=== PATIENT | female | born 1960 | race Caucasian/White ===

== ENCOUNTER 2017-01-12 08:00 | Outpatient (CLI) | payer MEDICAID | END 2017-01-12 08:01 | disposition home or self-care (01) | DX: Z12.11 Encounter for screening for malignant neoplasm of colon (principal) ==

== ENCOUNTER 2017-01-13 08:57 | Outpatient (CLI) | payer MEDICAID | END 2017-01-13 08:58 | disposition home or self-care (01) | DX: Z12.31 Encounter for screening mammogram for malignant neoplasm of breast (principal) ==

== ENCOUNTER 2017-01-20 14:47 | Outpatient (CLI) | payer MEDICAID | END 2017-01-20 14:48 | disposition home or self-care (01) | DX: Z13.9 Encounter for screening, unspecified (principal) ==

== ENCOUNTER 2017-10-28 13:36 | Emergency (ER) | payer MEDICAID ==
[2017-10-28 14:11] LABS: BILIRUBIN,URINE NEGATIVE (NEGATIVE); GLUCOSE, URINE (UA) NEGATIVE (NEGATIVE); KETONES,URINE (UA) NEGATIVE (NEGATIVE); LEUKOCYTE ESTERASE, URINE NEGATIVE (NEGATIVE); NITRITE,URINE NEGATIVE (NEGATIVE); OCCULT BLOOD,URINE NEGATIVE (NEGATIVE); PROTEIN,URINE NEGATIVE (NEGATIVE); UROBILINOGEN,URINE 0.2 (NORMAL) E.U./dL (NORMAL)
[2017-10-28 14:14] LABS: CLARITY,URINE CLEAR (CLEAR)
--- NOTE | 2017-10-28 15:00 | ED Physician Documentation ---
PD HPI FEMALE - Stated complaint Stated Complaint: FEMALE - Chief complaint Chief Complaint: UTI - History obtained from History obtained from: Patient - History of Present Illness Timing - onset: How many days ago (3-4) Timing - duration: Days Timing - details: Gradual onset, Still present, Waxing and waning Associated symptoms: Dysuria, Urinary frequency. No: Fever, Vaginal bleeding, Vaginal discharge, Hematuria Contributing factors: No: Exposed to STD Similar symptoms before: Diagnosis (UTIs) Recently seen: Not recently seen Review of Systems Constitutional: denies: Fever Throat: denies: Sore throat GI: denies: Abdominal Pain, Vomiting, Diarrhea : reports: Dysuria, Frequency. 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 : None HEENT: None Psych: Depression, Anxiety Musculoskeletal: None Derm: None - Past Surgical History Past Surgical History: Yes /CLINICAL LABORATORY ASSISTANT: Tubal ligation - Present Medications Home Medications: Ambulatory Orders Medication Instructions Recorded Confirmed Alprazolam [Xanax] 0.25 mg PO HS 05/27/13 10/28/17 Bupropion HCl [Wellbutrin] 100 mg PO DAILY 05/27/13 10/28/17 Temazepam 7.5 mg PO HS 05/27/13 10/28/17 Metronidazole [Flagyl] 500 mg PO BID #14 tablet 10/28/17 Naproxen 375 mg PO BID #14 tablet 10/28/17 Phenazopyridine HCl 200 mg PO TID PRN #15 tablet 10/28/17 - Allergies Allergies/Adverse Reactions: Allergies Allergy/AdvReac Type Severity Reaction Status Date / Time No Known Drug Allergies Allergy Verified 10/28/17 13:56 - Social History Does the pt smoke?: No Smoking Status: Never smoker Does the pt drink ETOH?: No Does the pt have substance abuse?: No - Immunizations Immunizations are current?: Yes - POLST Patient has POLST: No PD ED PE NORMAL - Vitals Vital signs reviewed: Yes - General General: Alert and oriented X 3, Well developed/nourished - HEENT HEENT: Ears normal, Pharynx benign - Neck Neck: Supple, no meningeal sign, No adenopathy - Cardiac Cardiac: RRR, No murmur - Respiratory Respiratory: Clear bilaterally - Abdomen Abdomen: Soft, Non tender - 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 ) - Derm Derm: Normal color, Warm and dry Results - Vitals Vitals: Oxygen O2 Source Room air - Labs Labs: Microbiology 10/28/17 15:55 Wet Prep - Final Vaginal Laboratory Tests 10/28/17 10/28/17 14:02 15:55 Urine Color LIGHT YELLOW Urine Clarity CLEAR Urine pH 6.0 Ur Specific [place] <=1.005 Urine Protein NEGATIVE Urine Glucose (UA) NEGATIVE Urine Ketones NEGATIVE Urine Occult Blood NEGATIVE Urine Nitrite NEGATIVE Urine Bilirubin NEGATIVE Urine Urobilinogen 0.2 (NORMAL) Ur Leukocyte Esterase NEGATIVE Ur Microscopic Review NOT INDICATED Urine Culture Comments NOT INDICATED C.trachomatis RNA (TMA) NOT DETECTED Chlamydia/GC Comment SEE NOTE N.gonorrhoeae RNA (TMA) NOT DETECTED PD MEDICAL DECISION MAKING - ED course Complexity details: reviewed results (UA not showing infection so discussed vaginal exam and this had appearance of BV. ), considered differential, d/w patient Departure - Departure Disposition: 01 Home, Self Care Clinical Impression: Dysuria Vaginitis Qualifiers: Chronicity: acute Qualified Code(s): N76.0 - Acute vaginitis Condition: Stable Record reviewed to determine appropriate education?: Yes Instructions: ED Dysuria Uncertain Cause, ED Vaginosis Bacterial Follow-Up: Ena Andino ARNP [Primary Care Provider] - Prescriptions: Metronidazole [Flagyl] 500 mg PO BID #14 tablet Naproxen 375 mg PO BID #14 tablet Phenazopyridine HCl 200 mg PO TID PRN #15 tablet PRN Reason: Pain Comments: Your urine test appears normal. There is some mucus and inflammation in the vaginal vault so I think the cause of your symptoms is vaginitis. We will treat that with metronidazole antibiotic. Also an anti-inflammatory naproxen twice daily for a week. He can use phenazopyridine to decrease urinary symptoms over the next couple of days while the other medications are working. Recheck if not better over the next several days. We did do a culture of the vaginal vault which will result in about 3 days and we will call you if we need to change the antibiotics based on that. Discharge Date/Time: 10/28/17 16:20
[2017-10-28] MEDS ORDERED: PHENAZOPYRIDINE 100 MG TABLET PO STA (15:45)
[2017-10-28] MEDS ORDERED: NAPROXEN 250 MG TABLET PO STA (15:56)
[2017-10-28] MEDS ORDERED: metroNIDAZOLE 250 MG TABLET PO STA (15:56)
[2017-10-28 16:12] VITALS: BP 123/87
== END 2017-10-28 16:20 | disposition home or self-care (01) ==
LOC: ED 13:36
DX: R30.0 Dysuria (principal)
CPT/HCPCS: 81003; 87210; 87491; 87591; 99283; A9270; 81001; 87086

== ENCOUNTER 2018-01-27 11:38 | Emergency (ER) | payer MEDICAID ==
--- NOTE | 2018-01-27 12:48 | XRAY Report ---
EXAM: RIGHT FOOT RADIOGRAPHY EXAM DATE: 01/27/2018 12:14 PM. CLINICAL HISTORY: Right foot pain for one month. COMPARISON: None. TECHNIQUE: 3 views. FINDINGS: Bones: Normal. No fractures or bone lesions. Joints: Normal. No subluxations. Soft Tissues: Normal. No soft tissue swelling. IMPRESSION: Normal foot radiography. [facility] Referring Provider Line: [phone] SITE ID: [id number]
--- NOTE | 2018-01-27 12:56 | ED Physician Documentation ---
PD HPI LOWER EXT INJURY - Stated complaint Stated Complaint: R FOOT PX - Chief complaint Chief Complaint: Ext Problem - History obtained from History obtained from: Patient - History of Present Illness PD HPI LOW EXT INJURY LOCATION: Right, Foot Type of injury: Other (No known injury.) Timing - duration: Months (1) Timing - details: Waxing and waning Worsened by: Other (Worse at night, and worse with weightbearing.) - Additional information Additional information: The patient is a 57-year-old female who presents complaining of pain in her right foot. The pain has been waxing and waning for the past month. She states it is worse at night and worse with weightbearing. She denies any traumatic injury. She is not a runner or involved in sports activity. She denies history of similar symptoms in the past. Review of Systems Constitutional: denies: Fever Nose: denies: Congestion Respiratory: denies: Dyspnea, Cough GI: reports: Abdominal Pain. 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 : None HEENT: None Psych: Depression, Anxiety Musculoskeletal: None Derm: None - Past Surgical History Past Surgical History: Yes /DIESEL PLANT OPERATOR: Tubal ligation - Present Medications Home Medications: Ambulatory Orders Medication Instructions Recorded Confirmed Alprazolam [Xanax] 0.25 mg PO HS 05/27/13 10/28/17 Bupropion HCl [Wellbutrin] 100 mg PO DAILY 05/27/13 10/28/17 Temazepam 7.5 mg PO HS 05/27/13 10/28/17 Naproxen [Naprosyn] 500 mg PO BID #20 tablet 01/27/18 - Allergies Allergies/Adverse Reactions: Allergies Allergy/AdvReac Type Severity Reaction Status Date / Time No Known Drug Allergies Allergy Verified 01/27/18 11:45 - Social History Does the pt smoke?: No Smoking Status: Never smoker Does the pt drink ETOH?: No Does the pt have substance abuse?: No - Immunizations Immunizations are current?: Yes - POLST Patient has POLST: No PD ED PE NORMAL - Vitals Vital signs reviewed: Yes (normal) - General General: Alert and oriented X 3, Well developed/nourished - HEENT HEENT: Atraumatic - Respiratory Respiratory: No respiratory distress - Derm Derm: No rash - Extremities Extremities: No deformity, No edema, No calf tenderness / cord, Other (There is mild tenderness to palpation along the plantar aspect of the right foot. There is no swelling or erythema, and no break in the integument. Distal neurovascular is intact. There is no bony tenderness to palpation.) - Neuro Neuro: Alert and oriented X 3, No motor deficit, No sensory deficit Results - Vitals Vitals: Oxygen O2 Source Room air - Rads (name of study) right foot Radiology: Prelim report reviewed, EMP read contemporaneously, See rad report ( Normal foot radiography.) PD MEDICAL DECISION MAKING - ED course Complexity details: reviewed results, re-evaluated patient, considered differential, d/w patient, d/w family ED course: The patient's presentation is most consistent with plantar fasciitis. There is no bony abnormality detected on x-ray. I discussed with her the diagnosis, symptomatic treatment and outpatient follow-up, as well as potentially worrisome signs or symptoms that should prompt reevaluation in the emergency department. She is being discharged with a prescription for Naprosyn. Departure - Departure Disposition: 01 Home, Self Care Clinical Impression: Plantar fasciitis Condition: Stable Instructions: ED Plantar Fasciitis Follow-Up: Ena Andino ARNP [Primary Care Provider] - Prescriptions: Naproxen [Naprosyn] 500 mg PO BID #20 tablet Comments: Keep your right foot elevated as much of the time as possible. You can use Naprosyn as prescribed if needed for pain. You could use ibuprofen , up to 600 mg 3 times daily, but do not take both ibuprofen and Naprosyn in the same day. Let pain be your guide to activity level. Follow up with your primary physician within 2 weeks. Call to schedule an appointment. Return to the emergency department if you develop increasing pain or swelling, or otherwise worsening symptoms. Discharge Date/Time: 01/27/18 13:10
[2018-01-27 13:12] VITALS: BP 111/80
== END 2018-01-27 13:10 | disposition home or self-care (01) ==
LOC: ED 11:38
DX: M72.2 Plantar fascial fibromatosis (principal)
CPT/HCPCS: 99283

== ENCOUNTER 2018-04-25 09:31 | Outpatient (CLI) | payer MEDICAID ==
--- NOTE | 2018-04-27 11:05 | Mammography Report ---
Procedure Date: 04/25/2018 Accession Number: [id number] / [id number] Procedure: OLYA - Screening Mammo Dig Bilat CPT Code: FULL RESULT: EXAM: Screening Mammo Dig Bilat DATE: 04/25/2018 9:48 AM CLINICAL HISTORY: 57-year-old with history of late childbearing for screening TECHNIQUE: Bilateral CC and MLO views were obtained. COMPARISON: 01/13/2017, 11/25/2015, 02/20/2014, 01/16/2013, 08/20/2010 FINDINGS: The breasts demonstrate scattered fibroglandular densities bilaterally. No suspicious masses, clustered microcalcifications, or regions of architectural distortion are identified. IMPRESSION: Negative examination RECOMMENDATION: Routine annual screening unless otherwise clinically indicated. BIRADS CATEGORY 1: Negative STANDARD QUALIFYING STATEMENTS: 1. This examination was reviewed with the aid of Computer-Aided Detection (CAD). 2. A negative or benign imaging report should not delay biopsy if clinically suspicious findings are present. Consider surgical consultation if warrented. More than 5% of cancers are not identified by imaging. 3. Dense breasts may obscure an underlying neoplasm.
== END 2018-04-25 09:32 | disposition home or self-care (01) ==
LOC: DI 09:31
PROVIDERS: ATTEND Family Medicine
DX: Z12.31 Encounter for screening mammogram for malignant neoplasm of breast (principal)
CPT/HCPCS: 77067

== ENCOUNTER 2018-08-02 08:27 | Outpatient (CLI) | payer MEDICAID ==
[2018-08-02 13:13] LABS: BASOPHILS % (AUTO) 0.6 %; EOSINOPHILS % (AUTO) 1.3 %; HGB - HEMOGLOBIN 13.9 g/dL (12.0-16.0); LYMPHOCYTES # (AUTO) 1.4 10^3/uL (1.5-3.5); LYMPHOCYTES % (AUTO) 37.4 %; MEAN CORPUSCULAR HEMOGLOBIN 30.7 pg (27.0-31.0); MEAN CORPUSCULAR HGB CONC 33.9 g/dL (32.0-36.0); MEAN CORPUSCULAR VOLUME 90.7 fL (81.0-99.0); MEAN PLATELET VOLUME 9.5 fL (7.9-10.8); MONOCYTES # (AUTO) 0.3 10^3/uL (0.0-1.0); MONOCYTES % (AUTO) 6.7 %; PLT - PLATELET COUNT 202 10^3/uL (130-450); RED BLOOD COUNT 4.51 10^6/uL (4.20-5.40); RED CELL DISTRIBUTION WIDTH 12.7 % (12.0-15.0); WHITE BLOOD COUNT 3.8 x10^3/uL (4.8-10.8)
[2018-08-02 13:23] LABS: ALBUMIN 4.1 g/dL (3.2-5.5); ALBUMIN/GLOBULIN RATIO 1.6 (1.0-2.2); ALKALINE PHOSPHATASE 47 IU/L (42-121); ALT ALANINE AMINOTRANSFERASE 13 IU/L (10-60); AST ASPARTATE AMINOTRANSFERASE 24 IU/L (10-42); BILIRUBIN,TOTAL 0.6 mg/dL (0.2-1.0); BUN - BLOOD UREA NITROGEN 9 mg/dL (6-20); CALCIUM 9.1 mg/dL (8.5-10.3); CARBON DIOXIDE - CO2 28 mmol/L (21-32); CHLORIDE 103 mmol/L (101-111); CHOL/HDL RATIO 2.8 (<4.4); CHOLESTEROL 191 mg/dL; CREATININE 0.5 mg/dL (0.4-1.0); GFR - MDRD 127 (>89); GLUCOSE 83 mg/dL (70-100); HDL CHOLESTEROL 69 mg/dL; SODIUM 138 mmol/L (135-145); TOTAL PROTEIN 6.7 g/dL (6.7-8.2)
[2018-08-02 16:19] LABS: LDL CHOLESTEROL,DIRECT 110 mg/dL; LDLD/HDL RATIO 1.6 (<4.4)
== END 2018-08-02 08:28 | disposition home or self-care (01) ==
LOC: LAB.WCP 08:27
PROVIDERS: ATTEND Nurse Practitioner Gerontology
DX: Z13.9 Encounter for screening, unspecified (principal)
CPT/HCPCS: 36415; 80053; 80061; 83721; 84443; 85025

== ENCOUNTER 2018-12-22 16:19 | Outpatient (CLI) | payer MEDICAID ==
--- NOTE | 2018-12-22 22:04 | MRI Report ---
Reason: BACK PAIN,LOW,INCONTINENCE URINE,RADICULOPATHY Procedure Date: 12/22/2018 Accession Number: [id number] / [id number] Procedure: MRI - Lumbar Spine W/O CPT Code: FULL RESULT: EXAM: MRI LUMBAR SPINE WITHOUT CONTRAST EXAM DATE: 12/22/2018 06:01 PM. CLINICAL HISTORY: 58-year-old female. BACK PAIN,LOW,INCONTINENCE URINE,RADICULOPATHY. COMPARISON: XR LUMBAR SPINE 2 OR 3 VIEWS 02/21/2012 9:56 AM. TECHNIQUE: Multiplanar, multisequence T1-weighted and fluid-sensitive sequences of the lumbar spine from T12 to S1 without contrast. Other: None. FINDINGS: Spinal Canal: The conus terminates at T12-L1. The conus medullaris and cauda equina are unremarkable. Alignment: No scoliosis or spondylolisthesis. Bone Marrow: Five [id number] lumbar vertebral bodies are assumed. No gross fractures or bone lesions. No bone marrow replacement. Disk Levels/Facets: T12-L1: Unremarkable. L1-L2: Unremarkable. L2-L3: Minimal diffuse disk bulge. No significant central canal or foraminal narrowing. L3-L4: Minimal diffuse disk falls. No significant central canal narrowing. Mild bilateral foraminal narrowing. L4-L5: Mild diffuse disk bulge. Mild bilateral facet arthropathy. No significant central canal narrowing. Mild bilateral foraminal narrowing. L5-S1: Mild diffuse disk bulge. Mild bilateral facet arthropathy. No significant central canal narrowing. No foraminal narrowing. Musculature: Normal. No edema or fatty atrophy. Other: T2 hyperintense hepatic lesion, please see the prior liver MR for detailed evaluation. The partially visualized abdomen, pelvis, and retroperitoneum are otherwise unremarkable. IMPRESSION: 1. Mild multilevel degenerative spondylosis, as detailed above and summarized below. No evidence of acute fracture or malalignment. No bone marrow edema. No cord signal abnormality. 2. L3-L4: No significant central canal narrowing. Mild bilateral foraminal narrowing. 3. L4-L5: No significant central canal narrowing. Mild bilateral foraminal narrowing. 4. No significant central canal or foraminal narrowing at remaining lumbar levels. Comment: The following findings are so common in adults without low back pain that while we report their presence, they must be interpreted with caution and in the context of the clinical situation. (Reference Miguelangel et al, Spine 2001) Prevalence of findings in patients without low back pain: Disk degeneration (any evidence): 92% Disk desiccation/T2 signal loss: 83% Disk height loss: 56% Disk bulge: 64% Disk protrusion: 32% Annular tear/high intensity zone: 38% [facility]
== END 2018-12-22 16:20 | disposition home or self-care (01) ==
LOC: DI 16:19
PROVIDERS: ATTEND Nurse Practitioner Gerontology
DX: M47.9 Spondylosis, unspecified (principal); M48.061 Spinal stenosis, lumbar region without neurogenic claudication
CPT/HCPCS: 72148

== ENCOUNTER 2019-01-06 10:29 | Emergency (ER) | payer MEDICAID ==
--- NOTE | 2019-01-06 12:57 | ED Physician Documentation ---
PD HPI MHE - Stated complaint Stated Complaint: MED REFILL - Chief complaint Chief Complaint: General - History obtained from History obtained from: Patient - History of Present Illness Primary symptom: Out of meds (She states she did not get a refill of her usual anxiety medicines from [facility]. The typically would have renewed the prescriptions. She currently takes diazepam 2 mg daily in the morning and temazepam 30 mg at night for sleep. She has both bottles with her and they were filled on December 06 for 30 tablets each so it makes sense that she is out of medications for the last several days. She has been feeling very anxious and states she has been out of them for 4 days. 1 of the bottle says no refills so she would have to likely get an appointment. 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 : None HEENT: None Psych: Depression, Anxiety Musculoskeletal: None Derm: None - Past Surgical History Past Surgical History: Yes /SHIP LOADER: Tubal ligation - Present Medications Home Medications: Ambulatory Orders Medication Instructions Recorded Confirmed Alprazolam [Xanax] 0.25 mg PO HS 05/27/13 10/28/17 Bupropion HCl [Wellbutrin] 100 mg PO DAILY 05/27/13 10/28/17 Temazepam 7.5 mg PO HS 05/27/13 10/28/17 Naproxen [Naprosyn] 500 mg PO BID #20 tablet 01/27/18 Diazepam 2 mg PO DAILY #7 tablet 01/06/19 Temazepam [Restoril] 30 mg PO QPM #7 capsule 01/06/19 - Allergies Allergies/Adverse Reactions: Allergies Allergy/AdvReac Type Severity Reaction Status Date / Time No Known Drug Allergies Allergy Verified 01/27/18 11:45 - Social History Does the pt smoke?: No Smoking Status: Never smoker Does the pt drink ETOH?: No Does the pt have substance abuse?: No - Immunizations Immunizations are current?: Yes - POLST Patient has POLST: No PD ED PE NORMAL - Vitals Vital signs reviewed: Yes - General General: Alert and oriented X 3, No acute distress, Well developed/nourished - Neck Neck: Supple, no meningeal sign, No adenopathy - Cardiac Cardiac: RRR, No murmur - Respiratory Respiratory: Clear bilaterally - Derm Derm: Normal color, Warm and dry - Neuro Neuro: Alert and oriented X 3, No motor deficit, Normal speech Results - Vitals Vitals: Oxygen O2 Source Room air PD MEDICAL DECISION MAKING - ED course Complexity details: reviewed old records, considered differential, d/w patient Departure - Departure Disposition: Home, Self Care Clinical Impression: Anxiety, Has run out of medications Condition: Stable Record reviewed to determine appropriate education?: Yes Follow-Up: Ena Andino ARNP [Primary Care Provider] - [facility] [Provider Group] Prescriptions: Diazepam 2 mg PO DAILY #7 tablet Temazepam [Restoril] 30 mg PO QPM #7 capsule Comments: Continue usual medications. Follow up with [facility] Tuesday to resolve the refill delay. Discharge Date/Time: 01/06/19 13:29
[2019-01-06] MEDS ORDERED: diazePAM 5 MG TABLET PO STA (13:15)
[2019-01-06 13:30] VITALS: BP 94/54
== END 2019-01-06 13:29 | disposition home or self-care (01) ==
LOC: ED 10:29
DX: F41.9 Anxiety disorder, unspecified (principal); Z76.0 Encounter for issue of repeat prescription
CPT/HCPCS: 99281; 99283; A9270

== ENCOUNTER 2020-07-28 10:14 | Outpatient (CLI) | payer MEDICAID ==
[2020-07-28 11:51] LABS: BASOPHILS % (AUTO) 0.6 %; EOSINOPHILS # (AUTO) 0.1 10^3/uL (0.0-0.7); EOSINOPHILS % (AUTO) 1.5 %; HGB - HEMOGLOBIN 13.7 g/dL (12.0-16.0); LYMPHOCYTES # (AUTO) 1.6 10^3/uL (1.5-3.5); LYMPHOCYTES % (AUTO) 33.3 %; MEAN CORPUSCULAR HEMOGLOBIN 29.8 pg (27.0-31.0); MEAN CORPUSCULAR HGB CONC 32.3 g/dL (32.0-36.0); MEAN CORPUSCULAR VOLUME 92.4 fL (81.0-99.0); MEAN PLATELET VOLUME 11.3 fL (7.9-10.8); MONOCYTES # (AUTO) 0.4 10^3/uL (0.0-1.0); MONOCYTES % (AUTO) 8.5 %; NEUTROPHILS # (AUTO) 2.6 10^3/uL (1.5-6.6); NEUTROPHILS % (AUTO) 55.9 %; PLT - PLATELET COUNT 202 10^3/uL (130-450); RED BLOOD COUNT 4.59 10^6/uL (4.20-5.40); WHITE BLOOD COUNT 4.7 x10^3/uL (4.8-10.8)
[2020-07-28 12:39] LABS: ALBUMIN 4.2 g/dL (3.2-5.5); ALBUMIN/GLOBULIN RATIO 1.7 (1.0-2.2); ALKALINE PHOSPHATASE 48 IU/L (42-121); ALT ALANINE AMINOTRANSFERASE 42 IU/L (10-60); AST ASPARTATE AMINOTRANSFERASE 34 IU/L (10-42); BILIRUBIN,TOTAL 0.6 mg/dL (0.2-1.0); BUN - BLOOD UREA NITROGEN 17 mg/dL (6-20); CALCIUM 9.2 mg/dL (8.5-10.3); CARBON DIOXIDE - CO2 29 mmol/L (21-32); CHLORIDE 102 mmol/L (101-111); CHOL/HDL RATIO 5.1 (<4.4); CHOLESTEROL 262 mg/dL; CREATININE 0.6 mg/dL (0.4-1.0); GLUCOSE 87 mg/dL (70-100); HDL CHOLESTEROL 51 mg/dL; LDL CHOLESTEROL,CALCULATED 199 mg/dL; LDL/HDL RATIO 3.9 (<4.4); SODIUM 138 mmol/L (135-145); TOTAL PROTEIN 6.7 g/dL (6.7-8.2); VLDL CHOLESTEROL 12 mg/dL
== END 2020-07-28 23:59 | disposition home or self-care (01) ==
LOC: LAB.WCP 10:14
PROVIDERS: ATTEND Nurse Practitioner Family
DX: Z13.9 Encounter for screening, unspecified (principal)
CPT/HCPCS: 36415; 80053; 80061; 83721; 84443; 85025

== ENCOUNTER 2020-08-01 08:00 | Outpatient (CLI) | payer MEDICAID | END 2020-08-01 23:59 | disposition home or self-care (01) | LOC: LAB.R 08:00 | PROVIDERS: ATTEND Nurse Practitioner Family | DX: Z12.11 Encounter for screening for malignant neoplasm of colon (principal) | CPT/HCPCS: 82274 ==

== ENCOUNTER 2020-08-09 13:34 | Emergency (ER) | payer MEDICAID ==
[2020-08-09 13:48] VITALS: BP 119/78
--- NOTE | 2020-08-09 14:08 | ED Physician Documentation ---
History of Present Illness - Stated complaint Stated Complaint: RASH - Chief complaint Chief Complaint: Allergic Rx - History obtained from History obtained from: Patient - Additonal information Additional information: 2 days ago she developed a sore throat. It was not associated with fevers, shortness of breath, runny nose. She did have loss of taste. Subsequently developed a rash that was migratory first on the arms, then the trunk, than the legs. It is not itchy. Otherwise she feels fine. 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 : None HEENT: None Psych: Depression, Anxiety Musculoskeletal: None Derm: None - Past Surgical History Past Surgical History: Yes /BOAT CAMP OPERATOR: Tubal ligation - Present Medications Home Medications: Ambulatory Orders Medication Instructions Recorded Confirmed Alprazolam [Xanax] 0.25 mg PO HS 05/27/13 10/28/17 Bupropion HCl [Wellbutrin] 100 mg PO DAILY 05/27/13 10/28/17 Temazepam 7.5 mg PO HS 05/27/13 10/28/17 Naproxen [Naprosyn] 500 mg PO BID #20 tablet 01/27/18 Diazepam 2 mg PO DAILY #7 tablet 01/06/19 Temazepam [Restoril] 30 mg PO QPM #7 capsule 01/06/19 - Allergies Allergies/Adverse Reactions: Allergies Allergy/AdvReac Type Severity Reaction Status Date / Time No Known Drug Allergies Allergy Verified 01/27/18 11:45 - Social History Does the pt smoke?: No Smoking Status: Never smoker Does the pt drink ETOH?: No Does the pt have substance abuse?: No - Immunizations Immunizations are current?: Yes - POLST Patient has POLST: No PD ED PE NORMAL - Vitals Vital signs reviewed: Yes - General General: Alert and oriented X 3, No acute distress - HEENT HEENT: PERRL, EOMI, Pharynx benign - Neck Neck: Supple, no meningeal sign, No bony TTP - Abdomen Abdomen: Soft, Non tender - Derm Derm: Other (Very mild macular fine rash on the anterior thighs, symmetric.) - Neuro Neuro: Alert and oriented X 3, Normal speech Results - Vitals Vitals: Vital Signs - 24 hr 08/09/20 13:45 Temperature 36.9 C Heart Rate 83 Respiratory 16 Rate Blood Pressure 119/78 O2 Saturation 99 Oxygen O2 Source Room air PD MEDICAL DECISION MAKING - ED course ED course: She is a very mild rash, likely some sort of mild allergic reaction. Throat is now okay. She requested COVID testing. Departure - Departure Disposition: 01 Home, Self Care Clinical Impression: Rash and nonspecific skin eruption Condition: Good Record reviewed to determine appropriate education?: Yes Instructions: ED Dermatitis Non Specific Rash Comments: We will call if coronavirus testing is positive, return for new or worsening symptoms. Otherwise this seems fairly minor at this point and I would just watch and wait.
== END 2020-08-09 14:16 | disposition home or self-care (01) ==
LOC: ED 13:34
DX: R21 Rash and other nonspecific skin eruption (principal); Z20.828 Contact with and (suspected) exposure to other viral communicable diseases
CPT/HCPCS: 99282; 99283

== ENCOUNTER 2020-09-12 08:07 | Outpatient (CLI) | payer MEDICAID ==
--- NOTE | 2020-09-15 14:05 | Mammography Report ---
BILATERAL DIGITAL SCREENING MAMMOGRAM 3D/2D: 09/12/2020 CLINICAL: Routine screening. Comparison is made to exams dated: 04/25/2018 mammogram, 01/13/2017 mammogram, 11/25/2015 ultrasound, mammogram, 02/20/2014 mammogram, and 01/16/2013 ultrasound - [facility]. Th ere are scattered fibroglandular elements in both breasts. No significant masses, calcifications, or other findings are seen in either breast. There has been no significant interval change. IMPRESSION: NEGATIVE There is no mammographic evidence of malignancy. A 1 year screening mammogram is recommended. This exam was interpreted at Station ID: [id number]. NOTE: For mammograms, a report in lay terms will be sent to the patient. Approximately 15% of breast malignancies will not be visualized mammographically. In the management of a palpable breast mass, a negative mammogram must not discourage biopsy of a clinically suspicious lesion. Electronically Signed By: Zacarias chowdhury/ashley:09/12/2020 09:11:01 ACR BI-RADS Category 1: Negative 3341F PARENCHYMAL PATTERN: (A) - The breast(s) demonstrate(s) scattered fibroglandular densities. BI-RADS CATEGORY: (1) - 1 RECOMMENDATION: (ANNUAL) - Recommend routine annual screening mammography. [id number] 1 year screening LATERALITY: (B)
== END 2020-09-12 08:08 | disposition home or self-care (01) ==
LOC: DI.N 08:07
DX: Z12.31 Encounter for screening mammogram for malignant neoplasm of breast (principal)
CPT/HCPCS: 77063; 77067

== ENCOUNTER 2021-10-14 09:23 | Outpatient (CLI) | payer MEDICAID ==
--- NOTE | 2021-10-14 11:06 | XRAY Report ---
PROCEDURE: Knee 3 View LT INDICATIONS: L KNEE PX TECHNIQUE: 3 views of the left knee(s) were acquired. COMPARISON: None. FINDINGS: Bones: No fractures or dislocations. No suspicious bony lesions. Soft tissues: Small suprapatellar joint effusion. No suspicious soft tissue calcifications. IMPRESSION: 1. No fracture. No osseous lesion. If there are persistent symptoms or continued clinical concern for pathology, then repeat plain film radiographs (7-10 days) or advanced imaging (CT, MR, bone scan) sh ould be considered for further evaluation. 2. Small nonspecific joint effusion. Recommend correlation with clinical and laboratory data. Reviewed by: Nola Finnegan MD, PhD on 10/14/2021 11:[address] [facility] Approved by: Nola Finnegan MD, PhD on 10/14/2021 11:[address] [facility] Station ID: [id number]
== END 2021-10-14 23:59 | disposition home or self-care (01) ==
LOC: DI.N 09:23
PROVIDERS: ATTEND Family Medicine
DX: M25.562 Pain in left knee (principal); M25.462 Effusion, left knee

== ENCOUNTER 2021-10-22 09:05 | Outpatient (CLI) | payer MEDICAID ==
--- NOTE | 2021-10-26 11:14 | Mammography Report ---
BILATERAL DIGITAL SCREENING MAMMOGRAM 3D/2D: 10/22/2021 CLINICAL: Routine screening. Comparison is made to exams dated: 09/12/2020 mammogram, 04/25/2018 mammogram, and 01/13/2017 mammogra m - [facility]. There are scattered fibroglandular elements in both breasts. No significant masses, calcifications, or other findings are seen in either breast. There has been no significant interval change. IMPRESSION: NEGATIVE There is no mammographic evidence of malignancy. A 1 year screening mammogram is recommended. This exam was interpreted at Station ID: [id number]. NOTE: For mammograms, a report in lay terms will be sent to the patient. Approximately 15% of breast malignancies will not be visualized mammographically. In the management of a palpable breast mass, a negative mammogram must not discourage biopsy of a clinically suspicious lesion. Electronically Signed By: Jose R Sales M.D. ar/penrad:10/22/2021 10:17:53 ACR BI-RADS Category 1: Negative 3341F PARENCHYMAL PATTERN: (A) - The breast(s) demonstrate(s) scattered fibroglandular densities. BI-RADS CATEGORY: (1) - 1 RECOMMENDATION: (ANNUAL) - Recommend routine annual screening mammography. [id number] 1 year screening LATERALITY: (B)
== END 2021-10-22 09:06 | disposition home or self-care (01) ==
LOC: DI 09:05
DX: Z12.31 Encounter for screening mammogram for malignant neoplasm of breast (principal)

== ENCOUNTER 2022-03-18 09:48 | Emergency (ER) | payer MEDICAID ==
[2022-03-18 10:00] VITALS: BP 102/71
--- NOTE | 2022-03-18 11:06 | ED Physician Documentation ---
PD HPI FEMALE - Stated complaint Stated Complaint: FEMALE - Chief complaint Chief Complaint: UTI - History obtained from History obtained from: Patient - History of Present Illness Timing - onset: How many days ago (2 days of chills, malaise, and having itchy spots on neck/face/arms-hands/ and feet.) Timing - duration: Days (2) Timing - details: Abrupt onset (has congestion, sore throat for 1-2 days and itchy rash now. She had been having some vaginal itching/discharge for over a month and thought these other symptoms were that being generalized.) Associated symptoms: Fever, Vaginal discharge. No: Vaginal pain (but having burning/itchiness labial area.), Genital sore/lesion, Dysuria, Urinary frequency Contributing factors: No: Sexually active, Exposed to STD Similar symptoms before: Diagnosis (the vaginal symptoms are c/w yeast infections she has had in the past.) Recently seen: Not recently seen (she tried Monistat OTC and got limited improvement in vaginal symptoms for few days then returned.) Review of Systems Constitutional: reports: Fever (subjective since ya), Chills Nose: reports: Rhinorrhea / runny nose, Congestion Throat: reports: Sore throat Respiratory: denies: Dyspnea, Cough GI: denies: Abdominal Pain, Nausea, Vomiting, Diarrhea Skin: reports: Rash (tender/itchy spots of rash on arms/hands, ankles/feet, and around neck. 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 - Present Medications Home Medications: Ambulatory Orders Medication Instructions Recorded Confirmed Alprazolam [Xanax] 0.25 mg PO HS 05/27/13 10/28/17 Bupropion HCl [Wellbutrin] 100 mg PO DAILY 05/27/13 10/28/17 Temazepam 7.5 mg PO HS 05/27/13 10/28/17 Naproxen [Naprosyn] 500 mg PO BID #20 tablet 01/27/18 Diazepam 2 mg PO DAILY #7 tablet 01/06/19 Temazepam [Restoril] 30 mg PO QPM #7 capsule 01/06/19 Cetirizine [ZyrTEC] 10 mg PO BID #15 tablet 03/18/22 Fluconazole [Diflucan] 150 mg PO Q3D 6 Days #2 tablet 03/18/22 dexAMETHasone [Decadron] 4 mg PO DAILY #5 tablet 03/18/22 - Allergies Allergies/Adverse Reactions: Allergies Allergy/AdvReac Type Severity Reaction Status Date / Time No Known Drug Allergies Allergy Verified 01/27/18 11:45 - Social History Does the pt smoke?: No Smoking Status: Never smoker Does the pt drink ETOH?: No Does the pt have substance abuse?: No - Immunizations Immunizations are current?: Yes - POLST Patient has POLST: No PD ED PE NORMAL - Vitals Vital signs reviewed: Yes - General General: Alert and oriented X 3, No acute distress (she is itching at her neck some. ), Well developed/nourished - HEENT HEENT: Moist mucous membranes, Pharynx benign (no noted spots on palatte nor pharynx. ) - Neck Neck: Supple, no meningeal sign, No adenopathy - Cardiac Cardiac: RRR, No murmur - Respiratory Respiratory: Clear bilaterally - Abdomen Abdomen: Soft, Non tender - Female Female : Deferred - Back Back: No CVA TTP - Derm Derm: Normal color, Warm and dry, Other (some red firm spots on palms and arms. couple on feet. SOme red bumps on neck, but no vesicles. DOes not appear like hives, but are smaller bumps. ) Results - Vitals Vitals: Vital Signs - 24 hr 03/18/22 09:53 Temperature 36.5 C Heart Rate 88 Respiratory 16 Rate Blood Pressure 102/71 O2 Saturation 97 Oxygen O2 Source Room air PD MEDICAL DECISION MAKING - ED course Complexity details: re-evaluated patient (I asked about ill contacts and particularly HFM disease, and she then said that that is what her brother's children were Dx with about a week ago. ), considered differential (itchy rash and also has vaginal discharge/itch. I think is separate problems. Has had vaginal symptoms for couple weeks, not better with Monistat. Has spotty/itchy rash hands/feet/neck with congestion/sore throat after being around sick brother. ), d/w patient Departure - Departure Disposition: 01 Home, Self Care Clinical Impression: Pruritic rash, Hand, foot and mouth disease, Yeast vaginitis Condition: Stable Record reviewed to determine appropriate education?: Yes Instructions: ED Hand Foot Mouth Disease Ch, ED Vaginal Infec Fungal Cyn Follow-Up: Migdalia Castro ARNP [Primary Care Provider] - Prescriptions: dexAMETHasone [Decadron] 4 mg PO DAILY #5 tablet Fluconazole [Diflucan] 150 mg PO Q3D 6 Days #2 tablet Cetirizine [ZyrTEC] 10 mg PO BID #15 tablet Comments: We can treat your vaginal symptoms as presumed yeast vaginitis. Its not too unusual for the vaginal medications to not complete lately clear the infection. Oral medication tends to be more effective. Fluconazole orally every third day for 2 more doses as directed. Your itching rash likely is the wfte-svfq-rha-mouth disease that you are nieces and nephews had. The head cold portion of it should go away on its own. The rash and itching can be improved with antihistamines and steroid medication. Alternative would be the itching and rash may be contact dermatitis or environmental allergies instead. The treatment would still be the same. See if the symptoms improve over the next few days. Recheck if not improving or worsening overall. I sent your prescriptions to [facility] pharmacy in [place]. Discharge Date/Time: 03/18/22 11:53
[2022-03-18] MEDS ORDERED: diphenhydrAMINE 25 MG CAPSULE PO STA (11:23)
[2022-03-18] MEDS ORDERED: FLUCONAZOLE 100 MG TABLET PO STA (11:23)
[2022-03-18] MEDS ORDERED: CETIRIZINE 10 MG TABLET PO STA (11:23)
[2022-03-18] MEDS ORDERED: DEXAMETHASONE 10 MG/ML VIAL PO STA (11:23)
[2022-03-18] MEDS ORDERED: CHERRY SYRUP 10 ML UDC PO ONE (11:23)
== END 2022-03-18 11:53 | disposition home or self-care (01) ==
LOC: ED 09:48
DX: B08.4 Enteroviral vesicular stomatitis with exanthem (principal); B37.3 Candidiasis of vulva and vagina
CPT/HCPCS: 99283; A9270

== ENCOUNTER 2022-03-29 11:13 | Emergency (ER) | payer MEDICAID ==
[2022-03-29 11:33] VITALS: BP 121/75
--- NOTE | 2022-03-29 12:13 | ED Physician Documentation ---
History of Present Illness - Stated complaint Stated Complaint: COUGH/THROAT PX - Chief complaint Chief Complaint: General - Additonal information Additional information: 61-year-old female return to the emergency department for evaluation of what she believes to be croup. Reports a bark-like cough. She also states that she has a rash that comes and goes but is only present at night. She denies any fever, any nausea or vomiting. She was seen by my colleague on the of this month and diagnosed with huea-fcpc-uih-mouth disease she was started on a course of Decadron. She was also treated with fluconazole for what was suspected to be a vaginitis. Patient states she is try to follow-up with her primary care doctor 3 times but has been unable to reach them. She called the emergency department this morning requesting a refill of her medications but given the time that has elapsed since last visit she decided to check herself into the emergency department. Review of Systems Constitutional: denies: Fever, Chills Eyes: reports: Reviewed and negative Nose: reports: Congestion Throat: reports: Sore throat Cardiac: reports: Reviewed and negative Respiratory: reports: Cough. 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 - Present Medications Home Medications: Ambulatory Orders Medication Instructions Recorded Confirmed Alprazolam [Xanax] 0.25 mg PO HS 05/27/13 10/28/17 Bupropion HCl [Wellbutrin] 100 mg PO DAILY 05/27/13 10/28/17 Temazepam 7.5 mg PO HS 05/27/13 10/28/17 Naproxen [Naprosyn] 500 mg PO BID #20 tablet 01/27/18 Diazepam 2 mg PO DAILY #7 tablet 01/06/19 Temazepam [Restoril] 30 mg PO QPM #7 capsule 01/06/19 Cetirizine [ZyrTEC] 10 mg PO BID #15 tablet 03/18/22 Fluconazole [Diflucan] 150 mg PO Q3D 6 Days #2 tablet 03/18/22 dexAMETHasone [Decadron] 4 mg PO DAILY #5 tablet 03/18/22 - Allergies Allergies/Adverse Reactions: Allergies Allergy/AdvReac Type Severity Reaction Status Date / Time No Known Drug Allergies Allergy Verified 03/29/22 11:33 - Social History Does the pt smoke?: No Smoking Status: Never smoker Does the pt drink ETOH?: No Does the pt have substance abuse?: No - Immunizations Immunizations are current?: Yes - POLST Patient has POLST: No PD ED PE NORMAL - General General: Alert and oriented X 3, No acute distress, Well developed/nourished - HEENT HEENT: Atraumatic, Ears normal, Moist mucous membranes, Pharynx benign - Neck Neck: Supple, no meningeal sign, No adenopathy - Cardiac Cardiac: RRR, No murmur, No gallop - Respiratory Respiratory: No respiratory distress, Clear bilaterally - Abdomen Abdomen: Normal bowel sounds, Soft - Back Back: No CVA TTP, No spinal TTP - Derm Derm: Normal color, Warm and dry, No rash - Extremities Extremities: No deformity, No tenderness to palpate, Normal ROM s pain - Neuro Neuro: Alert and oriented X 3, corporate attorney 2-12 intact Eye Opening: Spontaneous Motor: Obeys Commands Verbal: Oriented GCS Score: 15 Results - Vitals Vitals: Vital Signs - 24 hr 03/29/22 11:28 Temperature 36.8 C Heart Rate 78 Respiratory 18 Rate Blood Pressure 121/75 O2 Saturation 97 Oxygen O2 Source Room air PD MEDICAL DECISION MAKING - ED course Complexity details: reviewed results, re-evaluated patient, considered differential, d/w patient ED course: 7-year-old female comes emergency department for evaluation of cough that she feels is likely croup that began about 3 weeks ago. She also reports a rash that comes and goes though no rashes present right now. Seen by my colleague a few weeks ago diagnosed with utnf-sdke-xnu-mouth disease. She is completed a course of Decadron and has been using cetirizine for the rash. Patient appeared remarkably well though seem frustrated she could not get follow-up with her primary care provider over the last few weeks. My exam was unremarkable without any abnormal cardiopulmonary findings. However given the duration of the cough and her concern of croup I did offer chest x-ray as well as respiratory panel. Patient seemed thankful for this. 1235: I have been notified by nursing staff that patient has eloped from the emergency department. They were unable to complete chest x-ray imaging or respiratory panel but at the time of my last evaluation patient appeared remarkably well Departure - Departure Disposition: ED Elope Clinical Impression: Cough
== END 2022-03-29 12:28 | disposition left against medical advice (07) ==
LOC: ED 11:13
DX: R05.9 Cough, unspecified (principal)
CPT/HCPCS: 99281; 99282

== ENCOUNTER 2022-12-13 08:35 | Emergency (ER) | payer MEDICAID ==
[2022-12-13] MEDS ORDERED: NITROFURANTOIN MACRO 100 MG CAPSULE PO STA (09:44)
[2022-12-13 09:46] LABS: BILIRUBIN,URINE NEGATIVE (NEGATIVE); GLUCOSE, URINE (UA) 100 mg/dL (NEGATIVE); KETONES,URINE (UA) NEGATIVE (NEGATIVE); OCCULT BLOOD,URINE NEGATIVE (NEGATIVE); PH,URINE 5.5 PH (5.0-7.5); PROTEIN,URINE TRACE mg/dL (NEGATIVE)
--- NOTE | 2022-12-13 09:47 | ED Physician Documentation ---
PD HPI FEMALE - Stated complaint Stated Complaint: F - Chief complaint Chief Complaint: UTI - History obtained from History obtained from: Patient - History of Present Illness Pain level max: 3 Pain level max: 3 Associated symptoms: Dysuria, Urinary frequency. No: Fever, Abdominal pain, Back pain, Vaginal pain, Vaginal bleeding, Vaginal discharge - Additional information Additional information: Patient is a 62-year-old female who presents to the emergency department complaining of dysuria and urinary frequency starting last night. Similar to prior UTIs. No vaginal bleeding or discharge. No back or abdominal pain. No fevers. No chills. 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 - Present Medications Home Medications: Ambulatory Orders Medication Instructions Recorded Confirmed Alprazolam [Xanax] 0.25 mg PO HS 05/27/13 10/28/17 Bupropion HCl [Wellbutrin] 100 mg PO DAILY 05/27/13 10/28/17 Temazepam 7.5 mg PO HS 05/27/13 10/28/17 Naproxen [Naprosyn] 500 mg PO BID #20 tablet 01/27/18 Diazepam 2 mg PO DAILY #7 tablet 01/06/19 Temazepam [Restoril] 30 mg PO QPM #7 capsule 01/06/19 Cetirizine [ZyrTEC] 10 mg PO BID #15 tablet 03/18/22 Fluconazole [Diflucan] 150 mg PO Q3D 6 Days #2 tablet 03/18/22 dexAMETHasone [Decadron] 4 mg PO DAILY #5 tablet 03/18/22 Nitrofurantoin [Macrobid] 100 mg PO BID #10 cap 12/13/22 Phenazopyridine HCl [Pyridium] 200 mg PO TID PRN #6 tablet 12/13/22 - Allergies Allergies/Adverse Reactions: Allergies Allergy/AdvReac Type Severity Reaction Status Date / Time No Known Drug Allergies Allergy Verified 12/13/22 08:45 - Social History Does the pt smoke?: No Smoking Status: Never smoker Does the pt drink ETOH?: No Does the pt have substance abuse?: No - Immunizations Immunizations are current?: Yes - POLST Patient has POLST: No PD ED PE NORMAL - Vitals Vital signs reviewed: Yes - General General: Alert and oriented X 3, No acute distress - HEENT HEENT: Moist mucous membranes - Neck Neck: Supple, no meningeal sign - Cardiac Cardiac: RRR - Respiratory Respiratory: No respiratory distress, Clear bilaterally - Abdomen Abdomen: Soft, Non tender, Non distended - Back Back: No CVA TTP, No spinal TTP - Derm Derm: Warm and dry - Neuro Neuro: Alert and oriented X 3 - Psych Psych: Normal mood, Normal affect Results - Vitals Vitals: Vital Signs - 24 hr 12/13/22 12/13/22 08:43 09:55 Temperature 36.0 C L Heart Rate 88 87 Respiratory 20 14 Rate Blood Pressure 96/69 111/74 O2 Saturation 100 99 Oxygen O2 Source Room air - Labs Labs: Laboratory Tests 12/13/22 09:30 Urine Color ORANGE Urine Clarity CLEAR Urine pH 5.5 Ur Specific [place] <=1.005 Urine Protein TRACE Urine Glucose (UA) 100 H Urine Ketones NEGATIVE Urine Occult Blood NEGATIVE Urine Nitrite Urine Bilirubin NEGATIVE Urine Urobilinogen Ur Leukocyte Esterase Urine RBC 0-5 Urine WBC 4-5 Urine WBC Clumps PRESENT Ur Squamous Epith Cells RARE Squamous Urine Bacteria Rare Ur Microscopic Review INDICATED Urine Culture Comments NOT INDICATED PD Medical Decision Making - ED course Complexity details: reviewed results, considered differential, d/w patient ED course: 62-year-old female with a UTI. No evidence of pyelonephritis, sepsis. Patient is well-appearing, nontoxic. Afebrile. Urinalysis reviewed and is consistent with UTI. Patient counseled regarding signs and symptoms for which I believe and urgent re-evaluation would be necessary. Patient with good understanding of and agreement to plan and is comfortable going home at this time This document was made in part using voice recognition software. While efforts are made to proofread this document, sound alike and grammatical errors may occur. Departure - Departure Disposition: 01 Home, Self Care Clinical Impression: Urinary tract infection Qualifiers: Urinary tract infection type: acute cystitis Hematuria presence: without hematuria Qualified Code(s): N30.00 - Acute cystitis without hematuria Condition: Good Instructions: ED UTI Cystitis Female Follow-Up: Migdalia Castro ARNP [Primary Care Provider] - As Needed Prescriptions: Nitrofurantoin [Macrobid] 100 mg PO BID #10 cap Phenazopyridine HCl [Pyridium] 200 mg PO TID PRN #6 tablet PRN Reason: dysuria Comments: Your prescription [facility] in [place]. Please take all antibiotics until gone. Please return if you worsen. Discharge Date/Time: 12/13/22 09:55
[2022-12-13 09:49] LABS: CLARITY,URINE CLEAR (CLEAR)
[2022-12-13 09:56] VITALS: BP 111/74
[2022-12-13 10:06] LABS: BACTERIA,URINE Rare /HPF (None Seen); RBC,URINE 0-5 /HPF (0-5); SQUAMOUS EPITHELIAL CELL,UR RARE Squamous (<= Few); WBC CLUMPS,URINE PRESENT
== END 2022-12-13 09:55 | disposition home or self-care (01) ==
LOC: ED 08:35
DX: N30.00 Acute cystitis without hematuria (principal)
CPT/HCPCS: 81001; 99283; A9270; 81003; 87086

== ENCOUNTER 2023-06-14 08:00 | Outpatient (CLI) | payer MEDICAID ==
[2023-06-14 12:32] LABS: FECAL OCCULT BLOOD (FIT) NEGATIVE (NEGATIVE)
== END 2023-06-14 23:58 | disposition home or self-care (01) ==
LOC: LAB.N 08:00
PROVIDERS: ATTEND Nurse Practitioner
DX: Z12.11 Encounter for screening for malignant neoplasm of colon (principal)
CPT/HCPCS: 82274

== ENCOUNTER 2023-06-16 08:07 | Outpatient (CLI) | payer MEDICAID ==
--- NOTE | 2023-06-17 10:35 | Mammography Report ---
BILATERAL DIGITAL SCREENING MAMMOGRAM 3D/2D: 06/16/2023 CLINICAL: Routine screening. Comparison is made to exams dated: 10/22/2021 mammogram, 09/12/2020 mammogram, 04/25/2018 mammogram, 04/25/2018 mammogram, 01/13/2017 mammogram, and 01/13/2017 mammogram - [facility]. There are scattered areas of fibroglandular density in both breasts (category b / 25%-50% glandular t issue). No significant masses, calcifications, or other findings are seen in either breast. There has been no significant interval change. IMPRESSION: NEGATIVE There is no mammographic evidence of malignancy. A 1 year screening mammogram is recommended. Based on the Tyrer Cuzick model (a risk assessment model) the patients lifetime risk is 6.0% and her 10 year risk is 2.6%. According to the ACR, ACS, and NCCN guidelines, an annual breast MRI exam juany g with mammogram is recommended if the patients lifetime risk is 20% or greater. This exam was interpreted at Station ID: [id number]. NOTE: For mammograms, a report in lay terms will be sent to the patient. Approximately 15% of breast malignancies will not be visualized mammographically. In the management of a palpable breast mass, a negative mammogram must not discourage biopsy of a clinically suspicious lesion. Electronically Signed By: Yamel molina/[email or web address]:06/16/2023 12:25:54 letter sent: No_Letter ACR BI-RADS Category 1: Negative 3341F PARENCHYMAL PATTERN: (A) - The breast(s) demonstrate(s) scattered fibroglandular densities. BI-RADS CATEGORY: (1) - 1 Mammogram [id number] 1 year screening LATERALITY: (B)
== END 2023-06-16 08:08 | disposition home or self-care (01) ==
LOC: DI 08:07
DX: Z12.31 Encounter for screening mammogram for malignant neoplasm of breast (principal)

== ENCOUNTER 2023-07-02 14:09 | Emergency (ER) | payer MEDICAID ==
[2023-07-02 14:25] VITALS: BP 114/74; O2SAT 96
--- NOTE | 2023-07-02 14:54 | ED Physician Documentation ---
History of Present Illness - Stated complaint Stated Complaint: LT EYE BUBBLE - Chief complaint Chief Complaint: Heent - History obtained from History obtained from: Patient - History of Present Illness Timing: Last night Pain level max: 0 Pain level now: 0 - Additonal information Additional information: 63-year-old female states that she noticed a swelling to the left lower eyelid, inner aspect starting last night. Has been applying warm compresses without relief. No redness. No drainage. No vision changes. No trauma. Wears glasses but not contacts. Nothing makes it better or worse. 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 - Present Medications Home Medications: Ambulatory Orders Medication Instructions Recorded Confirmed Alprazolam [Xanax] 0.25 mg PO HS 05/27/13 10/28/17 Bupropion HCl [Wellbutrin] 100 mg PO DAILY 05/27/13 10/28/17 Temazepam 7.5 mg PO HS 05/27/13 10/28/17 Naproxen [Naprosyn] 500 mg PO BID #20 tablet 01/27/18 Diazepam 2 mg PO DAILY #7 tablet 01/06/19 Temazepam [Restoril] 30 mg PO QPM #7 capsule 01/06/19 Cetirizine [ZyrTEC] 10 mg PO BID #15 tablet 03/18/22 Fluconazole [Diflucan] 150 mg PO Q3D 6 Days #2 tablet 03/18/22 dexAMETHasone [Decadron] 4 mg PO DAILY #5 tablet 03/18/22 Nitrofurantoin [Macrobid] 100 mg PO BID #10 cap 12/13/22 Phenazopyridine HCl [Pyridium] 200 mg PO TID PRN #6 tablet 12/13/22 - Allergies Allergies/Adverse Reactions: Allergies Allergy/AdvReac Type Severity Reaction Status Date / Time No Known Drug Allergies Allergy Verified 12/13/22 08:45 - Social History Does the pt smoke?: No Smoking Status: Never smoker Does the pt drink ETOH?: No Does the pt have substance abuse?: No - Immunizations Immunizations are current?: Yes - POLST Patient has POLST: No PD ED PE NORMAL - Vitals Vital signs reviewed: Yes - General General: Alert and oriented X 3, No acute distress - HEENT HEENT: PERRL, Moist mucous membranes, Other (small sty L lower eyelid. no drainage.) - Derm Derm: Warm and dry - Neuro Neuro: Alert and oriented X 3 - Psych Psych: Normal mood, Normal affect Results - Vitals Vitals: Vital Signs - 24 hr 07/02/23 14:18 Temperature 37.0 C Heart Rate 87 Respiratory 16 Rate Blood Pressure 114/74 O2 Saturation 96 Oxygen O2 Source Room air PD Medical Decision Making - ED course Complexity details: considered differential, d/w patient ED course: Patient with a small stye on the left lower eyelid. No indication for antibiotics. We will continue warm compresses at home and have her follow-up with ophthalmology if she fails to improve as expected. Patient counseled regarding signs and symptoms for which I believe and urgent re-evaluation would be necessary. Patient with good understanding of and agreement to plan and is comfortable going home at this time This document was made in part using voice recognition software. While efforts are made to proofread this document, sound alike and grammatical errors may occur. Departure - Departure Disposition: 01 Home, Self Care Clinical Impression: Stye Qualifiers: Laterality: left Eyelid: lower Qualified Code(s): H00.015 - Hordeolum externum left lower eyelid Condition: Good Instructions: ED [place] Follow-Up: Migdalia Castro ARNP [Primary Care Provider] - Cody Sanchez MD [Provider Admit Priv/Credential] - Comments: Please follow up with ophthalmology if you do not improve in the next week with warm compresses. Apply the warm compresses for approximately 5 to 10 minutes at a time, every hour. This should help the stye to drain. Forms: PCP List Discharge Date/Time: 07/02/23 15:08
== END 2023-07-02 15:08 | disposition home or self-care (01) ==
LOC: ED 14:09
DX: H00.015 Hordeolum externum left lower eyelid (principal)
CPT/HCPCS: 99282; 99283

== ENCOUNTER 2024-04-06 07:42 | Outpatient (CLI) | payer MEDICAID ==
[2024-04-06 12:29] LABS: BASOPHILS % (AUTO) 0.5 %; EOSINOPHILS % (AUTO) 0.7 %; HCT - HEMATOCRIT 43.7 % (37.0-47.0); HGB - HEMOGLOBIN 13.9 g/dL (12.0-16.0); LYMPHOCYTES # (AUTO) 1.5 10^3/uL (1.5-3.5); LYMPHOCYTES % (AUTO) 34.4 %; MEAN CORPUSCULAR HEMOGLOBIN 29.4 pg (27.0-31.0); MEAN CORPUSCULAR HGB CONC 31.8 g/dL (32.0-36.0); MEAN CORPUSCULAR VOLUME 92.4 fL (81.0-99.0); MEAN PLATELET VOLUME 11.1 fL (7.9-10.8); MONOCYTES # (AUTO) 0.4 10^3/uL (0.0-1.0); MONOCYTES % (AUTO) 8.3 %; NEUTROPHILS # (AUTO) 2.4 10^3/uL (1.5-6.6); NEUTROPHILS % (AUTO) 56.1 %; PLT - PLATELET COUNT 214 10^3/uL (130-450); RED BLOOD COUNT 4.73 10^6/uL (4.20-5.40); RED CELL DISTRIBUTION WIDTH 12.4 % (12.0-15.0); WHITE BLOOD COUNT 4.2 x10^3/uL (4.8-10.8)
[2024-04-06 12:55] LABS: ALBUMIN 4.2 g/dL (3.2-5.5); ALBUMIN/GLOBULIN RATIO 1.8 (1.0-2.2); ALKALINE PHOSPHATASE 42 IU/L (42-121); ALT ALANINE AMINOTRANSFERASE 21 IU/L (10-60); AST ASPARTATE AMINOTRANSFERASE 19 IU/L (10-42); BILIRUBIN,TOTAL 0.5 mg/dL (0.2-1.0); BUN - BLOOD UREA NITROGEN 11 mg/dL (6-20); CALCIUM 9.6 mg/dL (8.5-10.3); CARBON DIOXIDE - CO2 29 mmol/L (21-32); CHLORIDE 104 mmol/L (101-111); CHOL/HDL RATIO 5.3 (<4.4); CHOLESTEROL 274 mg/dL; CREATININE 0.6 mg/dL (0.6-1.3); GFR - MDRD 101 (>89); GLUCOSE 93 mg/dL (74-104); HDL CHOLESTEROL 52 mg/dL; LDL CHOLESTEROL,CALCULATED 212 mg/dL; LDL/HDL RATIO 4.1 (<4.4); POTASSIUM 4.1 mmol/L (3.5-4.5); SODIUM 138 mmol/L (135-145); TOTAL PROTEIN 6.6 g/dL (6.4-8.9); TRIGLYCERIDES 51 mg/dL (48-352); VLDL CHOLESTEROL 10 mg/dL
[2024-04-06 13:00] LABS: THYROID STIMULATING HORMONE 1.98 uIU/mL (0.34-5.60)
== END 2024-04-06 07:43 | disposition home or self-care (01) ==
LOC: LAB.N 07:42
PROVIDERS: ATTEND Nurse Practitioner
DX: E78.5 Hyperlipidemia, unspecified (principal); R53.83 Other fatigue; M62.81 Muscle weakness (generalized); F41.9 Anxiety disorder, unspecified
CPT/HCPCS: 36415; 80053; 80061; 83721; 84443; 85025